=== PATIENT | female | born 1990 | race Caucasian/White ===

== ENCOUNTER 2017-10-02 05:38 | Day surgery (SDC) | payer OTHER ==
[2017-10-02] MEDS ORDERED: THROMBIN 5000 UNIT VIAL (06:41)
[2017-10-02] MEDS ORDERED: ROPIVACAINE 0.5 % 30 ML VIAL (06:41)
[2017-10-02] MEDS ORDERED: GELATIN SIZE 100 SPONGE (06:41)
[2017-10-02] MEDS ORDERED: SOD CHLORIDE 0.9% 1,000 ML IV (06:52)
[2017-10-02] MEDS ORDERED: MIDAZOLAM 1 MG/ML 2 ML INJ ×2 (06:58)
[2017-10-02] MEDS ORDERED: OXYCODONE/ACETAMINOPHEN (5/325) TAB PO ×4 (07:00→10:30)
[2017-10-02] MEDS ORDERED: LIDOCAINE 2% (SDV) 5 ML INJ (07:00)
[2017-10-02] MEDS ORDERED: morphine 2 MG INJ IV (07:00)
[2017-10-02] MEDS ORDERED: ONDANSETRON 4 MG INJ IV ×2 (07:00→10:30)
[2017-10-02] MEDS ORDERED: PROPOFOL 200 MG INJ (07:00)
[2017-10-02] MEDS: HEPARIN 1000 UNITS/ML 10 ML INJ (07:50)
[2017-10-02] MEDS: POLYMYXIN/BACITRACIN 1L IRRIG (08:41)
[2017-10-02] MEDS ORDERED: ONDANSETRON 4 MG INJ (09:21)
[2017-10-02] MEDS ORDERED: DEXAMETHASONE 4 MG/ML 1 ML INJ (09:21)
[2017-10-02] MEDS ORDERED: CEFAZOLIN 1 GM INJ ×6 (09:30→10:14)
[2017-10-02] MEDS ORDERED: ROCURONIUM 50 MG INJ ×2 (09:32)
[2017-10-02] MEDS ORDERED: KETOROLAC 30 MG INJ (09:40)
[2017-10-02] MEDS ORDERED: SUGAMMADEX SODIUM 200 MG/2 ML VIAL IV (09:50)
[2017-10-02] MEDS: POVIDONE IODINE 10% 28.4 GM OINT (10:00)
[2017-10-02] MEDS: THROMBIN 5000 UNIT VIAL (10:00)
[2017-10-02] MEDS: ROPIVACAINE 0.5 % 30 ML VIAL (10:00)
[2017-10-02] MEDS: CA CHLORIDE 10% 10 ML SYRINGE (10:00)
[2017-10-02] MEDS ORDERED: HYDROmorphONE (0.2 MG/ML) 10ML SYG IV ×3 (10:30)
[2017-10-02] MEDS ORDERED: LABETALOL HCL 20MG INJ IV (10:30)
[2017-10-02] MEDS ORDERED: KETOROLAC 30 MG INJ IV (10:30)
[2017-10-02] MEDS ORDERED: EPHEDrine SULFATE 50 MG/5 ML SYG IV (10:30)
[2017-10-02] MEDS ORDERED: ALBUTEROL 0.083% (NEB) 2.5 MG/3 ML AMP HHN (10:30)
[2017-10-02] MEDS ORDERED: MEPERIDINE 25 MG INJ IV (10:30)
[2017-10-02] MEDS ORDERED: MIDAZOLAM 1 MG/ML 2 ML INJ IV (10:30)
[2017-10-02] MEDS ORDERED: hydrALAzine 20 MG INJ IV (10:30)
[2017-10-02] MEDS ORDERED: FENTAnyl 50 MCG/ML VIAL IV ×3 (10:30)
[2017-10-02] MEDS ORDERED: DIPHENHYDRAMINE 50 MG INJ IV (10:30)
== END 2017-10-02 12:26 | disposition home or self-care (01) ==
LOC: SDS 05:38
DX: M93.272 Osteochondritis dissecans, left ankle and joints of left foot (principal); M65.872 Other synovitis and tenosynovitis, left ankle and foot
CPT/HCPCS: 29891; 86999